=== PATIENT | female | born 1935 | race Caucasian/White ===

== ENCOUNTER 2016-10-20 10:47 | Outpatient (CLI) ==
[2015-03-16 04:19] VITALS: BMI 23.4
--- NOTE | 2016-10-20 12:17 | DI ---
EXAM: Two x-rays of the chest. Comparison: 03/29/2015. Reason for exam: Acute bronchitis. FINDINGS: No pneumothorax, pleural effusion, or focal consolidation. Parenchymal changes are seen throughout both lungs. Operative changes are seen after bilateral shoulder arthroplasties. Vascula r calcifications are seen within the aorta. Chronic-appearing compression fractures are seen in the thoracic spine. Impression: No acute cardiopulmonary process.
== END 2016-10-20 10:48 | disposition home or self-care (01) ==
LOC: RAD 10:47
PROVIDERS: ATTEND Internal Medicine
DX: J20.9 Acute bronchitis, unspecified (principal)